=== PATIENT | male | born 1970 | race Caucasian/White ===

== ENCOUNTER 2020-11-15 16:21 | Inpatient (IN) ==
[2020-11-16] MEDS ORDERED: D5% in Water 1,000 ML IVC PRN (19:41)
[2020-11-16] MEDS ORDERED: *HR* Dextrose 50 % in Water (Vial) 50 ML VIAL IVP PRN (19:41)
[2020-11-16] MEDS ORDERED: Dextrose Gel 15 GM/37.5 ML TUBE PO PRN ×2 (19:41)
[2020-11-16] MEDS: *HR* HYDROcodone/Acet 7.5/325 mg TABLET PO PRN (23:28)
[2020-11-17] MEDS: Insulin LISPRO 300 UNITS/3 ML VIAL SUBQ SCH ×5 (02:06→20:46)
[2020-11-17] MEDS: *HR* HYDROcodone/Acet 7.5/325 mg TABLET PO PRN ×4 (05:55→20:01)
[2020-11-17] MEDS: *HR* Enoxaparin 40 MG/0.4 ML SYRINGE SQ SCH (05:57)
[2020-11-17] MEDS ORDERED: *HR* Metformin 500 MG TABLET PO SCH (08:00)
[2020-11-17] MEDS: Aspirin 81 MG TAB.CHEW PO SCH (08:38)
[2020-11-17] MEDS: Magnesium Oxide 400 MG TABLET PO SCH (08:39)
[2020-11-17] MEDS: lisinopriL 10 MG TABLET PO SCH (08:39)
[2020-11-17] MEDS ORDERED: lisinopriL 20 MG TABLET PO SCH (09:00)
[2020-11-17] MEDS ORDERED: *HR* Alteplase (Cathflo) 2 MG VIAL IVP ONE (09:25)
[2020-11-17 11:32] LABS: Basophils % 0.4 %; Eosinophils # 0.1 K/mcL (0.0-0.6); Eosinophils % 1.8 %; Hematocrit 35.4 % (37.5-50.1); Hemoglobin 11.8 g/dL (12.9-16.9); Immature Granulocytes % 0.6 % (0-4); Lymphocytes # 1.3 K/mcL (0.6-4.6); Lymphocytes % 16.5 %; Mean Corpuscular HGB Conc 33.3 g/dL (31.6-35.5); Mean Corpuscular Hemoglobin 29.9 pg (28.0-33.3); Mean Corpuscular Volume 89.8 fL (83.0-100.0); Mean Platelet Volume 8.2 fL (9.4-12.4); Monocytes # 0.8 K/mcL (0.0-1.3); Monocytes % 10.5 %; Neutrophils # 5.5 K/mcL (1.6-8.9); Platelet Count 354 K/mcL (140-400); Red Blood Count 3.94 M/mcL (4.19-5.50); Red Cell Distribution Width 13.5 % (11.5-14.5); Segmented Neutrophils % 70.2 %; White Blood Count 7.9 K/mcL (4.3-11.1)
[2020-11-17 11:47] LABS: BUN/Creatinine Ratio 19 (6-26); Blood Urea Nitrogen 14 mg/dL (6-20); Calcium 8.9 mg/dL (8.6-10.3); Carbon Dioxide 26 mEq/L (23-29); Chloride 101 mEq/L (98-107); Glucose 227 mg/dL (70-105); Osmolality,Calculated 284 (280-300); Potassium 4.3 mEq/L (3.5-5.1); Sodium 133 mEq/L (136-145); eGFR For African Americans > 60 (> 60); eGFR For Non-African Americans > 60 (> 60)
[2020-11-17] MEDS ORDERED: Vancomycin 1,000 MG in 0.9 % Sodium Chloride 10 ML IVPB SCH (18:00)
[2020-11-17] MEDS: Vancomycin 2,000 MG/520 ML IV.SOLN IVPB SCH (18:39)
[2020-11-17 19:46] LABS: Estimated Average Glucose 171 mg/dl; Hemoglobin A1C 7.6 %
[2020-11-18] MEDS: *HR* HYDROcodone/Acet 7.5/325 mg TABLET PO PRN ×4 (00:30→21:33)
[2020-11-18] MEDS: Vancomycin 2,000 MG/520 ML IV.SOLN IVPB SCH ×2 (05:13→17:43)
[2020-11-18] MEDS: *HR* Enoxaparin 40 MG/0.4 ML SYRINGE SQ SCH (05:13)
[2020-11-18] MEDS: lisinopriL 10 MG TABLET PO SCH (09:31)
[2020-11-18] MEDS: Insulin LISPRO 300 UNITS/3 ML VIAL SUBQ SCH ×4 (09:31→21:30)
[2020-11-18] MEDS: Aspirin 81 MG TAB.CHEW PO SCH (09:31)
[2020-11-18] MEDS: Magnesium Oxide 400 MG TABLET PO SCH (09:31)
[2020-11-18 16:36] LABS: BUN/Creatinine Ratio 19 (6-26); Blood Urea Nitrogen 14 mg/dL (6-20); eGFR For African Americans > 60 (> 60); eGFR For Non-African Americans > 60 (> 60)
[2020-11-19] MEDS: *HR* HYDROcodone/Acet 7.5/325 mg TABLET PO PRN ×3 (02:46→21:29)
[2020-11-19] MEDS: Vancomycin 2,000 MG/520 ML IV.SOLN IVPB SCH ×2 (05:38→17:47)
[2020-11-19] MEDS: *HR* Enoxaparin 40 MG/0.4 ML SYRINGE SQ SCH (05:38)
[2020-11-19 07:37] LABS: BUN/Creatinine Ratio 18 (6-26); Blood Urea Nitrogen 11 mg/dL (6-20); eGFR For African Americans > 60 (> 60); eGFR For Non-African Americans > 60 (> 60)
[2020-11-19] MEDS: Insulin LISPRO 300 UNITS/3 ML VIAL SUBQ SCH ×4 (08:56→21:30)
[2020-11-19] MEDS: Magnesium Oxide 400 MG TABLET PO SCH (08:57)
[2020-11-19] MEDS: Aspirin 81 MG TAB.CHEW PO SCH (08:57)
[2020-11-19] MEDS: lisinopriL 10 MG TABLET PO SCH (08:57)
[2020-11-20] MEDS: *HR* HYDROcodone/Acet 7.5/325 mg TABLET PO PRN ×3 (04:48→17:52)
[2020-11-20 04:49] LABS: Hematocrit 35.3 % (37.5-50.1); Hemoglobin 11.6 g/dL (12.9-16.9); Mean Corpuscular HGB Conc 32.9 g/dL (31.6-35.5); Mean Corpuscular Hemoglobin 29.7 pg (28.0-33.3); Mean Corpuscular Volume 90.5 fL (83.0-100.0); Mean Platelet Volume 8.6 fL (9.4-12.4); Platelet Count 293 K/mcL (140-400); Red Cell Distribution Width 13.6 % (11.5-14.5); White Blood Count 8.4 K/mcL (4.3-11.1)
[2020-11-20] MEDS: *HR* Enoxaparin 40 MG/0.4 ML SYRINGE SQ SCH (04:49)
[2020-11-20 05:07] LABS: Alanine Aminotransferase 23 Units/L (7-52); Albumin 2.9 g/dL (3.5-5.7); Albumin/Globulin Ratio 0.7 (1.1-2.2); Alkaline Phosphatase 67 Units/L (34-104); Aspartate Amino Transferase 13 Units/L (13-39); BUN/Creatinine Ratio 17 (6-26); Bilirubin,Total 0.6 mg/dL (0.3-1.0); Blood Urea Nitrogen 11 mg/dL (6-20); Calcium 8.9 mg/dL (8.6-10.3); Carbon Dioxide 25 mEq/L (23-29); Chloride 101 mEq/L (98-107); Globulin 3.9 g/dL (2.4-3.5); Glucose 178 mg/dL (70-105); Magnesium 1.9 mg/dL (1.6-2.6); Osmolality,Calculated 282 (280-300); Potassium 4.4 mEq/L (3.5-5.1); Sodium 134 mEq/L (136-145); Total Protein 6.8 g/dL (6.4-8.9); eGFR For African Americans > 60 (> 60); eGFR For Non-African Americans > 60 (> 60)
[2020-11-20] MEDS: Vancomycin 2,000 MG/520 ML IV.SOLN IVPB SCH ×2 (05:32→17:55)
[2020-11-20] MEDS: Insulin LISPRO 300 UNITS/3 ML VIAL SUBQ SCH ×4 (08:45→20:43)
[2020-11-20] MEDS: lisinopriL 20 MG TABLET PO SCH (09:02)
[2020-11-20] MEDS: Magnesium Oxide 400 MG TABLET PO SCH (09:02)
[2020-11-20] MEDS: Aspirin 81 MG TAB.CHEW PO SCH (09:02)
[2020-11-21] MEDS: *HR* HYDROcodone/Acet 7.5/325 mg TABLET PO PRN ×4 (03:21→22:07)
[2020-11-21] MEDS: *HR* Enoxaparin 40 MG/0.4 ML SYRINGE SQ SCH (05:34)
[2020-11-21] MEDS: Vancomycin 2,000 MG/520 ML IV.SOLN IVPB SCH (05:34)
[2020-11-21] MEDS: Aspirin 81 MG TAB.CHEW PO SCH (08:34)
[2020-11-21] MEDS: Insulin LISPRO 300 UNITS/3 ML VIAL SUBQ SCH ×4 (08:34→22:08)
[2020-11-21] MEDS: lisinopriL 20 MG TABLET PO SCH (08:34)
[2020-11-21] MEDS: Magnesium Oxide 400 MG TABLET PO SCH (08:34)
[2020-11-21] MEDS: Vancomycin 1,250 MG/262.5 ML IV.SOLN IVPB SCH ×2 (15:29→22:09)
[2020-11-21] MEDS ORDERED: Insulin DETEMIR 100 UNIT/ML per UNIT SUBQ ONE (21:00)
[2020-11-22 05:18] LABS: eGFR For African Americans > 60 (> 60); eGFR For Non-African Americans > 60 (> 60)
[2020-11-22] MEDS: *HR* Enoxaparin 40 MG/0.4 ML SYRINGE SQ SCH (06:17)
[2020-11-22] MEDS: Vancomycin 1,250 MG/262.5 ML IV.SOLN IVPB SCH ×3 (06:18→22:53)
[2020-11-22] MEDS: *HR* HYDROcodone/Acet 7.5/325 mg TABLET PO PRN ×3 (06:23→22:53)
[2020-11-22] MEDS: Aspirin 81 MG TAB.CHEW PO SCH (08:56)
[2020-11-22] MEDS: Insulin LISPRO 300 UNITS/3 ML VIAL SUBQ SCH ×4 (08:56→20:51)
[2020-11-22] MEDS: lisinopriL 20 MG TABLET PO SCH (08:56)
[2020-11-22] MEDS: Magnesium Oxide 400 MG TABLET PO SCH (08:56)
[2020-11-22] MEDS: Insulin DETEMIR 100 UNIT/ML X5UNITS SUBQ SCH ×2 (11:45→20:52)
[2020-11-23] MEDS: Vancomycin 1,250 MG/262.5 ML IV.SOLN IVPB SCH ×3 (06:11→22:41)
[2020-11-23] MEDS: *HR* Enoxaparin 40 MG/0.4 ML SYRINGE SQ SCH (06:11)
[2020-11-23] MEDS: *HR* HYDROcodone/Acet 7.5/325 mg TABLET PO PRN ×3 (06:12→18:50)
[2020-11-23 06:29] LABS: eGFR For African Americans > 60 (> 60); eGFR For Non-African Americans > 60 (> 60)
[2020-11-23] MEDS: lisinopriL 20 MG TABLET PO SCH (08:36)
[2020-11-23] MEDS: Magnesium Oxide 400 MG TABLET PO SCH (08:36)
[2020-11-23] MEDS: Aspirin 81 MG TAB.CHEW PO SCH (08:36)
[2020-11-23] MEDS: Insulin LISPRO 300 UNITS/3 ML VIAL SUBQ SCH ×4 (08:37→22:39)
[2020-11-23] MEDS: Insulin DETEMIR 100 UNIT/ML X5UNITS SUBQ SCH ×2 (08:45→22:40)
[2020-11-24] MEDS: *HR* HYDROcodone/Acet 7.5/325 mg TABLET PO PRN ×4 (00:41→21:42)
[2020-11-24 04:59] LABS: eGFR For African Americans > 60 (> 60); eGFR For Non-African Americans > 60 (> 60)
[2020-11-24] MEDS: *HR* Enoxaparin 40 MG/0.4 ML SYRINGE SQ SCH (05:54)
[2020-11-24] MEDS: Vancomycin 1,250 MG/262.5 ML IV.SOLN IVPB SCH ×3 (05:55→21:47)
[2020-11-24] MEDS: Insulin LISPRO 300 UNITS/3 ML VIAL SUBQ SCH ×4 (08:29→21:43)
[2020-11-24] MEDS: lisinopriL 20 MG TABLET PO SCH (09:17)
[2020-11-24] MEDS: Magnesium Oxide 400 MG TABLET PO SCH (09:17)
[2020-11-24] MEDS: Aspirin 81 MG TAB.CHEW PO SCH (09:17)
[2020-11-24] MEDS: Insulin DETEMIR 100 UNIT/ML X5UNITS SUBQ SCH ×2 (09:18→21:43)
[2020-11-24] MEDS ORDERED: Baclofen 10 MG TABLET PO PRN (10:37)
[2020-11-24] MEDS: tiZANidine 4 MG TABLET PO SCH ×3 (12:14→21:41)
[2020-11-24] MEDS: Baclofen 10 MG TABLET PO SCH (21:40)
[2020-11-25] MEDS: *HR* HYDROcodone/Acet 7.5/325 mg TABLET PO PRN ×4 (02:36→21:08)
[2020-11-25 05:49] LABS: Hematocrit 32.6 % (37.5-50.1); Hemoglobin 10.7 g/dL (12.9-16.9); Mean Corpuscular HGB Conc 32.8 g/dL (31.6-35.5); Mean Corpuscular Hemoglobin 29.2 pg (28.0-33.3); Mean Corpuscular Volume 89.1 fL (83.0-100.0); Mean Platelet Volume 8.9 fL (9.4-12.4); Platelet Count 207 K/mcL (140-400); Red Blood Count 3.66 M/mcL (4.19-5.50); Red Cell Distribution Width 13.2 % (11.5-14.5); White Blood Count 6.1 K/mcL (4.3-11.1)
[2020-11-25 06:07] LABS: BUN/Creatinine Ratio 20 (6-26); Blood Urea Nitrogen 13 mg/dL (6-20); Calcium 8.8 mg/dL (8.6-10.3); Carbon Dioxide 27 mEq/L (23-29); Chloride 97 mEq/L (98-107); Glucose 214 mg/dL (70-105); Osmolality,Calculated 277 (280-300); Potassium 4.1 mEq/L (3.5-5.1); Sodium 130 mEq/L (136-145); eGFR For African Americans > 60 (> 60); eGFR For Non-African Americans > 60 (> 60)
[2020-11-25] MEDS: *HR* Enoxaparin 40 MG/0.4 ML SYRINGE SQ SCH (06:15)
[2020-11-25] MEDS: Vancomycin 1,250 MG/262.5 ML IV.SOLN IVPB SCH (06:17)
[2020-11-25] MEDS: Aspirin 81 MG TAB.CHEW PO SCH (08:38)
[2020-11-25] MEDS: lisinopriL 20 MG TABLET PO SCH (08:39)
[2020-11-25] MEDS: Magnesium Oxide 400 MG TABLET PO SCH (08:39)
[2020-11-25] MEDS: Baclofen 10 MG TABLET PO SCH ×3 (08:39→21:06)
[2020-11-25] MEDS: tiZANidine 4 MG TABLET PO SCH ×3 (08:39→21:08)
[2020-11-25] MEDS: Insulin LISPRO 300 UNITS/3 ML VIAL SUBQ SCH ×4 (08:40→21:09)
[2020-11-25] MEDS: Insulin DETEMIR 100 UNIT/ML X5UNITS SUBQ SCH ×2 (08:40→21:08)
[2020-11-25 14:27] LABS: C-Reactive Protein 28 mg/L (Less than 10)
[2020-11-25] MEDS: Vancomycin 1,500 MG/265 ML IV.SOLN IVPB SCH ×2 (14:31→21:10)
[2020-11-26] MEDS: *HR* HYDROcodone/Acet 7.5/325 mg TABLET PO PRN ×3 (02:55→13:13)
[2020-11-26] MEDS: Vancomycin 1,500 MG/265 ML IV.SOLN IVPB SCH (05:49)
[2020-11-26] MEDS: *HR* Enoxaparin 40 MG/0.4 ML SYRINGE SQ SCH (05:49)
[2020-11-26 06:12] LABS: Basophils % 0.4 %; Eosinophils # 0.4 K/mcL (0.0-0.6); Eosinophils % 5.5 %; Hematocrit 34.3 % (37.5-50.1); Hemoglobin 11.5 g/dL (12.9-16.9); Immature Granulocytes % 0.7 % (0-4); Lymphocytes # 1.5 K/mcL (0.6-4.6); Lymphocytes % 20.2 %; Mean Corpuscular HGB Conc 33.5 g/dL (31.6-35.5); Mean Corpuscular Hemoglobin 29.7 pg (28.0-33.3); Mean Corpuscular Volume 88.6 fL (83.0-100.0); Monocytes # 0.9 K/mcL (0.0-1.3); Monocytes % 12.5 %; Neutrophils # 4.4 K/mcL (1.6-8.9); Platelet Count 245 K/mcL (140-400); Red Blood Count 3.87 M/mcL (4.19-5.50); Red Cell Distribution Width 13.4 % (11.5-14.5); Segmented Neutrophils % 60.7 %; White Blood Count 7.3 K/mcL (4.3-11.1)
[2020-11-26 06:30] LABS: BUN/Creatinine Ratio 18 (6-26); Blood Urea Nitrogen 11 mg/dL (6-20); Calcium 8.9 mg/dL (8.6-10.3); Carbon Dioxide 27 mEq/L (23-29); Chloride 99 mEq/L (98-107); Glucose 209 mg/dL (70-105); Osmolality,Calculated 282 (280-300); Potassium 4.2 mEq/L (3.5-5.1); Sodium 133 mEq/L (136-145); eGFR For African Americans > 60 (> 60); eGFR For Non-African Americans > 60 (> 60)
[2020-11-26] MEDS: Aspirin 81 MG TAB.CHEW PO SCH (08:05)
[2020-11-26] MEDS: lisinopriL 20 MG TABLET PO SCH (08:05)
[2020-11-26] MEDS: Magnesium Oxide 400 MG TABLET PO SCH (08:06)
[2020-11-26] MEDS: tiZANidine 4 MG TABLET PO SCH (08:06)
[2020-11-26] MEDS: Baclofen 10 MG TABLET PO SCH (08:06)
[2020-11-26] MEDS: Insulin LISPRO 300 UNITS/3 ML VIAL SUBQ SCH ×2 (08:07→13:04)
[2020-11-26 08:22] VITALS: BP 151/83
[2020-11-26] MEDS: Insulin DETEMIR 100 UNIT/ML X5UNITS SUBQ SCH (09:56)
== END 2020-11-26 13:40 | disposition short-term general hospital (02) | DRG 560 ==
LOC: INPGRE 11-16 21:09
PROVIDERS: ADMIT Family Medicine; ATTEND Family Medicine

== ENCOUNTER 2020-11-28 12:35 | Inpatient (IN) ==
[2020-11-30] MEDS ORDERED: *HR* Dextrose 50 % in Water (Vial) 50 ML VIAL IVP PRN (14:41)
[2020-11-30] MEDS ORDERED: D5% in Water 1,000 ML IVC PRN (14:41)
[2020-11-30] MEDS ORDERED: Dextrose Gel 15 GM/37.5 ML TUBE PO PRN ×2 (14:41)
[2020-11-30] MEDS: Insulin LISPRO 300 UNITS/3 ML VIAL SUBQ SCH ×2 (17:38→21:44)
[2020-11-30] MEDS ORDERED: polyethylene glycoL 3350 17 GM POWD.PACK PO PRN (19:23)
[2020-11-30] MEDS ORDERED: Sennosides 8.6 MG TABLET PO PRN (19:23)
[2020-11-30] MEDS: Ibuprofen 600 MG TABLET PO PRN (19:32)
[2020-11-30] MEDS ORDERED: [UNRECOGNIZED DRUG - OTHER] IV SCH (21:00)
[2020-11-30] MEDS ORDERED: Insulin DETEMIR 100 UNIT/ML per UNIT SUBQ ONE (21:00)
[2020-11-30] MEDS ORDERED: VANCOMYCIN IV SCH (21:00)
[2020-11-30] MEDS ORDERED: SOD CHLORIDE IV SCH (21:00)
[2020-11-30] MEDS ORDERED: Sennosides 8.6 MG TABLET PO SCH (21:00)
[2020-11-30] MEDS ORDERED: Insulin DETEMIR 100 UNIT/ML X5UNITS SUBQ SCH (21:00)
[2020-11-30] MEDS: *HR* OxyCODONE Immed Rel 5 MG TABLET PO PRN (21:45)
[2020-11-30] MEDS: Doxycycline 100 MG CAPSULE PO SCH (21:45)
[2020-11-30] MEDS: Baclofen 10 MG TABLET PO SCH (21:46)
[2020-12-01 03:51] LABS: Basophils % 0.6 %; Eosinophils # 0.4 K/mcL (0.0-0.6); Eosinophils % 5.3 %; Hematocrit 35.3 % (37.5-50.1); Hemoglobin 11.7 g/dL (12.9-16.9); Immature Granulocytes % 1.2 % (0-4); Lymphocytes # 1.6 K/mcL (0.6-4.6); Lymphocytes % 23.4 %; Mean Corpuscular HGB Conc 33.1 g/dL (31.6-35.5); Mean Corpuscular Hemoglobin 29.5 pg (28.0-33.3); Mean Corpuscular Volume 88.9 fL (83.0-100.0); Mean Platelet Volume 8.6 fL (9.4-12.4); Monocytes % 15.1 %; Neutrophils # 3.6 K/mcL (1.6-8.9); Platelet Count 243 K/mcL (140-400); Red Blood Count 3.97 M/mcL (4.19-5.50); Red Cell Distribution Width 13.6 % (11.5-14.5); Segmented Neutrophils % 54.4 %; White Blood Count 6.6 K/mcL (4.3-11.1)
[2020-12-01 04:07] LABS: BUN/Creatinine Ratio 19 (6-26); Blood Urea Nitrogen 12 mg/dL (6-20); Calcium 8.9 mg/dL (8.6-10.3); Carbon Dioxide 24 mEq/L (23-29); Chloride 105 mEq/L (98-107); Glucose 169 mg/dL (70-105); Osmolality,Calculated 288 (280-300); Potassium 3.6 mEq/L (3.5-5.1); Sodium 137 mEq/L (136-145); eGFR For African Americans > 60 (> 60); eGFR For Non-African Americans > 60 (> 60)
[2020-12-01] MEDS: *HR* Enoxaparin 40 MG/0.4 ML SYRINGE SQ SCH (06:04)
[2020-12-01] MEDS: *HR* OxyCODONE Immed Rel 5 MG TABLET PO PRN (08:48)
[2020-12-01] MEDS: Aspirin Enteric Coated 81 MG Tablet PO SCH (08:48)
[2020-12-01] MEDS: *HR* Metformin 500 MG TABLET PO SCH (08:48)
[2020-12-01] MEDS: lisinopriL 20 MG TABLET PO SCH (08:48)
[2020-12-01] MEDS: Doxycycline 100 MG CAPSULE PO SCH (08:49)
[2020-12-01] MEDS: Magnesium Oxide 400 MG TABLET PO SCH (08:49)
[2020-12-01] MEDS: Insulin LISPRO 300 UNITS/3 ML VIAL SUBQ SCH ×4 (08:49→21:00)
[2020-12-01] MEDS: Insulin DETEMIR 100 UNIT/ML X5UNITS SUBQ SCH ×2 (08:49→21:00)
[2020-12-01] MEDS: Baclofen 10 MG TABLET PO SCH ×3 (08:49→21:03)
[2020-12-01] MEDS ORDERED: polyethylene glycoL 3350 17 GM POWD.PACK PO SCH (09:00)
[2020-12-01] MEDS: Vancomycin 1,500 MG/265 ML IV.SOLN IVPB SCH ×2 (11:49→21:04)
[2020-12-01] MEDS: Fluticasone Propionate Nasal 50 MCG/SPRAY BOTTLE NS SCH (17:09)
[2020-12-01] MEDS: Ibuprofen 600 MG TABLET PO PRN (21:05)
[2020-12-02] MEDS: Vancomycin 1,500 MG/265 ML IV.SOLN IVPB SCH ×3 (04:58→20:31)
[2020-12-02] MEDS: *HR* Enoxaparin 40 MG/0.4 ML SYRINGE SQ SCH (04:59)
[2020-12-02] MEDS: Aspirin Enteric Coated 81 MG Tablet PO SCH (09:12)
[2020-12-02] MEDS: Insulin DETEMIR 100 UNIT/ML X5UNITS SUBQ SCH ×2 (09:12→20:32)
[2020-12-02] MEDS: *HR* Metformin 500 MG TABLET PO SCH (09:12)
[2020-12-02] MEDS: Insulin LISPRO 300 UNITS/3 ML VIAL SUBQ SCH ×4 (09:12→20:33)
[2020-12-02] MEDS: Baclofen 10 MG TABLET PO SCH ×3 (09:12→20:32)
[2020-12-02] MEDS: Magnesium Oxide 400 MG TABLET PO SCH (09:12)
[2020-12-02] MEDS: lisinopriL 20 MG TABLET PO SCH (09:13)
[2020-12-02] MEDS: Fluticasone Propionate Nasal 50 MCG/SPRAY BOTTLE NS SCH ×2 (09:14→11:39)
[2020-12-02] MEDS ORDERED: Ondansetron 4 MG/2 ML VIAL IVP PRN (15:06)
[2020-12-02] MEDS: *HR* OxyCODONE Immed Rel 5 MG TABLET PO PRN (20:32)
[2020-12-03] MEDS: Ibuprofen 600 MG TABLET PO PRN (00:25)
[2020-12-03] MEDS: Vancomycin 1,500 MG/265 ML IV.SOLN IVPB SCH ×3 (03:56→20:43)
[2020-12-03] MEDS: Aspirin Enteric Coated 81 MG Tablet PO SCH (08:15)
[2020-12-03] MEDS: *HR* Enoxaparin 40 MG/0.4 ML SYRINGE SQ SCH (08:15)
[2020-12-03] MEDS: *HR* Metformin 500 MG TABLET PO SCH (08:15)
[2020-12-03] MEDS: Insulin LISPRO 300 UNITS/3 ML VIAL SUBQ SCH ×4 (08:15→20:44)
[2020-12-03] MEDS: Baclofen 10 MG TABLET PO SCH ×3 (08:15→20:42)
[2020-12-03] MEDS: Magnesium Oxide 400 MG TABLET PO SCH (08:15)
[2020-12-03] MEDS: Fluticasone Propionate Nasal 50 MCG/SPRAY BOTTLE NS SCH (08:15)
[2020-12-03] MEDS: lisinopriL 20 MG TABLET PO SCH (08:15)
[2020-12-03] MEDS: Insulin DETEMIR 100 UNIT/ML X5UNITS SUBQ SCH ×2 (08:16→20:44)
[2020-12-03 12:02] LABS: BUN/Creatinine Ratio 15 (6-26); Blood Urea Nitrogen 12 mg/dL (6-20); eGFR For African Americans > 60 (> 60); eGFR For Non-African Americans > 60 (> 60)
[2020-12-03] MEDS: Nystatin Cream 15 GM TUBE TP SCH (20:42)
[2020-12-03] MEDS ORDERED: *HR* Labetalol 20 MG/4 ML SYRINGE IVP ONE (22:19)
[2020-12-04] MEDS: *HR* OxyCODONE Immed Rel 5 MG TABLET PO PRN ×2 (00:30→12:23)
[2020-12-04 05:07] LABS: Basophils % 0.4 %; Eosinophils # 0.2 K/mcL (0.0-0.6); Eosinophils % 2.9 %; Hematocrit 33.4 % (37.5-50.1); Hemoglobin 11.2 g/dL (12.9-16.9); Immature Granulocytes % 0.9 % (0-4); Lymphocytes # 1.7 K/mcL (0.6-4.6); Lymphocytes % 22.9 %; Mean Corpuscular HGB Conc 33.5 g/dL (31.6-35.5); Mean Corpuscular Hemoglobin 29.4 pg (28.0-33.3); Mean Corpuscular Volume 87.7 fL (83.0-100.0); Mean Platelet Volume 8.8 fL (9.4-12.4); Monocytes # 1.1 K/mcL (0.0-1.3); Monocytes % 14.2 %; Neutrophils # 4.4 K/mcL (1.6-8.9); Platelet Count 255 K/mcL (140-400); Red Blood Count 3.81 M/mcL (4.19-5.50); Red Cell Distribution Width 13.3 % (11.5-14.5); Segmented Neutrophils % 58.7 %; White Blood Count 7.6 K/mcL (4.3-11.1)
[2020-12-04 05:20] LABS: BUN/Creatinine Ratio 17 (6-26); Blood Urea Nitrogen 12 mg/dL (6-20); Calcium 9.1 mg/dL (8.6-10.3); Carbon Dioxide 26 mEq/L (23-29); Chloride 100 mEq/L (98-107); Glucose 160 mg/dL (70-105); Osmolality,Calculated 281 (280-300); Potassium 3.8 mEq/L (3.5-5.1); Sodium 134 mEq/L (136-145); eGFR For African Americans > 60 (> 60); eGFR For Non-African Americans > 60 (> 60)
[2020-12-04] MEDS: *HR* Enoxaparin 40 MG/0.4 ML SYRINGE SQ SCH (05:25)
[2020-12-04] MEDS: Vancomycin 1,500 MG/265 ML IV.SOLN IVPB SCH ×3 (05:30→21:14)
[2020-12-04] MEDS: *HR* Metformin 500 MG TABLET PO SCH (08:51)
[2020-12-04] MEDS: Aspirin Enteric Coated 81 MG Tablet PO SCH (08:51)
[2020-12-04] MEDS: lisinopriL 20 MG TABLET PO SCH (08:51)
[2020-12-04] MEDS: Magnesium Oxide 400 MG TABLET PO SCH (08:51)
[2020-12-04] MEDS: Baclofen 10 MG TABLET PO SCH ×3 (08:51→21:13)
[2020-12-04] MEDS: Insulin LISPRO 300 UNITS/3 ML VIAL SUBQ SCH ×4 (08:52→21:11)
[2020-12-04] MEDS: Insulin DETEMIR 100 UNIT/ML X5UNITS SUBQ SCH ×2 (08:52→21:11)
[2020-12-04] MEDS: Fluticasone Propionate Nasal 50 MCG/SPRAY BOTTLE NS SCH (08:52)
[2020-12-04] MEDS: Nystatin Cream 15 GM TUBE TP SCH ×2 (08:52→21:13)
[2020-12-05] MEDS: Ibuprofen 600 MG TABLET PO PRN ×2 (00:32→12:40)
[2020-12-05] MEDS: *HR* Enoxaparin 40 MG/0.4 ML SYRINGE SQ SCH (04:15)
[2020-12-05] MEDS: Vancomycin 1,500 MG/265 ML IV.SOLN IVPB SCH (04:15)
[2020-12-05 05:27] LABS: eGFR For African Americans > 60 (> 60); eGFR For Non-African Americans > 60 (> 60)
[2020-12-05] MEDS: Magnesium Oxide 400 MG TABLET PO SCH (09:35)
[2020-12-05] MEDS: *HR* Metformin 500 MG TABLET PO SCH (09:35)
[2020-12-05] MEDS: Insulin DETEMIR 100 UNIT/ML X5UNITS SUBQ SCH ×2 (09:36→20:27)
[2020-12-05] MEDS: lisinopriL 20 MG TABLET PO SCH (09:36)
[2020-12-05] MEDS: Insulin LISPRO 300 UNITS/3 ML VIAL SUBQ SCH ×4 (09:36→20:26)
[2020-12-05] MEDS: Aspirin Enteric Coated 81 MG Tablet PO SCH (09:36)
[2020-12-05] MEDS: Baclofen 10 MG TABLET PO SCH ×3 (09:36→20:27)
[2020-12-05] MEDS: Fluticasone Propionate Nasal 50 MCG/SPRAY BOTTLE NS SCH (09:39)
[2020-12-05] MEDS: *HR* OxyCODONE Immed Rel 5 MG TABLET PO PRN (09:39)
[2020-12-05] MEDS: Nystatin Cream 15 GM TUBE TP SCH ×2 (09:45→20:26)
[2020-12-05] MEDS: Vancomycin 1,250 MG/262.5 ML IV.SOLN IVPB SCH ×2 (17:30→20:25)
[2020-12-06] MEDS: Vancomycin 1,250 MG/262.5 ML IV.SOLN IVPB SCH ×3 (03:37→20:28)
[2020-12-06] MEDS: *HR* OxyCODONE Immed Rel 5 MG TABLET PO PRN ×3 (03:38→12:58)
[2020-12-06 04:45] LABS: eGFR For African Americans > 60 (> 60); eGFR For Non-African Americans > 60 (> 60)
[2020-12-06] MEDS: *HR* Enoxaparin 40 MG/0.4 ML SYRINGE SQ SCH (05:42)
[2020-12-06] MEDS: Magnesium Oxide 400 MG TABLET PO SCH (08:45)
[2020-12-06] MEDS: *HR* Metformin 500 MG TABLET PO SCH (08:45)
[2020-12-06] MEDS: lisinopriL 20 MG TABLET PO SCH (08:45)
[2020-12-06] MEDS: Aspirin Enteric Coated 81 MG Tablet PO SCH (08:45)
[2020-12-06] MEDS: Baclofen 10 MG TABLET PO SCH (08:45)
[2020-12-06] MEDS: Insulin DETEMIR 100 UNIT/ML X5UNITS SUBQ SCH ×2 (08:46→20:29)
[2020-12-06] MEDS: Fluticasone Propionate Nasal 50 MCG/SPRAY BOTTLE NS SCH (08:46)
[2020-12-06] MEDS: Insulin LISPRO 300 UNITS/3 ML VIAL SUBQ SCH ×4 (08:47→20:28)
[2020-12-06] MEDS ORDERED: lisinopriL 10 MG TABLET PO ONE (09:50)
[2020-12-06] MEDS: Nystatin Cream 15 GM TUBE TP SCH ×2 (11:50→20:30)
[2020-12-06] MEDS: tiZANidine 4 MG TABLET PO SCH ×2 (15:54→20:30)
[2020-12-06] MEDS: Bisacodyl 10 MG RECTAL SUPPOSITORY RC SCH (18:36)
[2020-12-06] MEDS: Baclofen 10 MG TABLET PO PRN (20:31)
[2020-12-07] MEDS: Ibuprofen 600 MG TABLET PO PRN ×2 (02:57→14:33)
[2020-12-07] MEDS: Vancomycin 1,250 MG/262.5 ML IV.SOLN IVPB SCH ×2 (03:30→12:09)
[2020-12-07] MEDS: *HR* Enoxaparin 40 MG/0.4 ML SYRINGE SQ SCH (05:17)
[2020-12-07 05:59] LABS: eGFR For African Americans > 60 (> 60); eGFR For Non-African Americans > 60 (> 60)
[2020-12-07] MEDS: Insulin LISPRO 300 UNITS/3 ML VIAL SUBQ SCH ×4 (08:01→21:58)
[2020-12-07] MEDS: tiZANidine 4 MG TABLET PO SCH ×3 (08:03→21:45)
[2020-12-07] MEDS: Magnesium Oxide 400 MG TABLET PO SCH (08:03)
[2020-12-07] MEDS: *HR* Metformin 500 MG TABLET PO SCH (08:03)
[2020-12-07] MEDS: Nystatin Cream 15 GM TUBE TP SCH ×2 (08:04→21:46)
[2020-12-07] MEDS: Fluticasone Propionate Nasal 50 MCG/SPRAY BOTTLE NS SCH (08:04)
[2020-12-07] MEDS: lisinopriL 20 MG TABLET PO SCH (08:04)
[2020-12-07] MEDS: Aspirin Enteric Coated 81 MG Tablet PO SCH (08:04)
[2020-12-07] MEDS: *HR* OxyCODONE Immed Rel 5 MG TABLET PO PRN ×2 (08:10→12:08)
[2020-12-07] MEDS: Insulin DETEMIR 100 UNIT/ML X5UNITS SUBQ SCH ×2 (08:11→21:58)
[2020-12-07] MEDS ORDERED: lisinopriL 10 MG TABLET PO ONE (09:50)
[2020-12-07] MEDS ORDERED: Carbamide Peroxide 150 DROP/15 ML BOTTLE LEFT EAR ONE (15:28)
[2020-12-07] MEDS: Loratadine 10 MG TABLET PO SCH (17:43)
[2020-12-07] MEDS: Amoxicillin 500 MG CAPSULE PO SCH (17:43)
[2020-12-07] MEDS: Bisacodyl 10 MG RECTAL SUPPOSITORY RC SCH (18:01)
[2020-12-07] MEDS: Vancomycin 1,500 MG/265 ML IV.SOLN IVPB SCH (21:44)
[2020-12-07] MEDS: Baclofen 10 MG TABLET PO PRN (21:45)
[2020-12-08] MEDS: Amoxicillin 500 MG CAPSULE PO SCH ×3 (00:10→17:34)
[2020-12-08] MEDS: *HR* OxyCODONE Immed Rel 5 MG TABLET PO PRN ×3 (02:20→13:24)
[2020-12-08] MEDS: Vancomycin 1,500 MG/265 ML IV.SOLN IVPB SCH ×3 (04:00→20:40)
[2020-12-08] MEDS: Baclofen 10 MG TABLET PO PRN (06:01)
[2020-12-08] MEDS: *HR* Enoxaparin 40 MG/0.4 ML SYRINGE SQ SCH (06:01)
[2020-12-08] MEDS: Insulin DETEMIR 100 UNIT/ML X5UNITS SUBQ SCH ×2 (09:11→20:59)
[2020-12-08] MEDS: Magnesium Oxide 400 MG TABLET PO SCH (09:11)
[2020-12-08] MEDS: Loratadine 10 MG TABLET PO SCH (09:11)
[2020-12-08] MEDS: lisinopriL 20 MG TABLET PO SCH (09:12)
[2020-12-08] MEDS: Aspirin Enteric Coated 81 MG Tablet PO SCH (09:12)
[2020-12-08] MEDS: tiZANidine 4 MG TABLET PO SCH ×3 (09:12→20:45)
[2020-12-08] MEDS: *HR* Metformin 500 MG TABLET PO SCH (09:12)
[2020-12-08] MEDS: Nystatin Cream 15 GM TUBE TP SCH ×2 (09:13→20:50)
[2020-12-08] MEDS: Fluticasone Propionate Nasal 50 MCG/SPRAY BOTTLE NS SCH (09:13)
[2020-12-08] MEDS: Insulin LISPRO 300 UNITS/3 ML VIAL SUBQ SCH ×4 (09:13→20:57)
[2020-12-08] MEDS: Bisacodyl 10 MG RECTAL SUPPOSITORY RC SCH (17:35)
[2020-12-08] MEDS: Carbamide Peroxide 150 DROP/15 ML BOTTLE LEFT EAR SCH (20:50)
[2020-12-08] MEDS: Ibuprofen 600 MG TABLET PO PRN (22:38)
[2020-12-09] MEDS: Amoxicillin 500 MG CAPSULE PO SCH ×4 (00:18→23:48)
[2020-12-09] MEDS: Vancomycin 1,500 MG/265 ML IV.SOLN IVPB SCH ×3 (04:10→19:59)
[2020-12-09] MEDS: *HR* Enoxaparin 40 MG/0.4 ML SYRINGE SQ SCH (06:52)
[2020-12-09 07:28] LABS: eGFR For African Americans > 60 (> 60); eGFR For Non-African Americans > 60 (> 60)
[2020-12-09] MEDS: Aspirin Enteric Coated 81 MG Tablet PO SCH (09:08)
[2020-12-09] MEDS: Loratadine 10 MG TABLET PO SCH (09:09)
[2020-12-09] MEDS: *HR* Metformin 500 MG TABLET PO SCH (09:09)
[2020-12-09] MEDS: Magnesium Oxide 400 MG TABLET PO SCH (09:09)
[2020-12-09] MEDS: tiZANidine 4 MG TABLET PO SCH ×3 (09:09→19:58)
[2020-12-09] MEDS: lisinopriL 20 MG TABLET PO SCH (09:09)
[2020-12-09] MEDS: Insulin DETEMIR 100 UNIT/ML X5UNITS SUBQ SCH ×2 (09:10→19:58)
[2020-12-09] MEDS: Insulin LISPRO 300 UNITS/3 ML VIAL SUBQ SCH ×4 (09:10→19:59)
[2020-12-09] MEDS: Nystatin Cream 15 GM TUBE TP SCH ×2 (09:11→20:00)
[2020-12-09] MEDS: Fluticasone Propionate Nasal 50 MCG/SPRAY BOTTLE NS SCH (09:14)
[2020-12-09] MEDS: Carbamide Peroxide 150 DROP/15 ML BOTTLE LEFT EAR SCH ×2 (09:15→20:00)
[2020-12-09] MEDS: *HR* OxyCODONE Immed Rel 5 MG TABLET PO PRN ×2 (12:29→23:02)
[2020-12-09] MEDS: Bisacodyl 10 MG RECTAL SUPPOSITORY RC SCH (17:58)
[2020-12-09] MEDS: Baclofen 10 MG TABLET PO PRN (23:02)
[2020-12-10] MEDS: Vancomycin 1,500 MG/265 ML IV.SOLN IVPB SCH ×3 (04:23→20:14)
[2020-12-10 05:20] LABS: Hematocrit 35.9 % (37.5-50.1); Mean Corpuscular HGB Conc 33.4 g/dL (31.6-35.5); Mean Corpuscular Hemoglobin 29.4 pg (28.0-33.3); Mean Platelet Volume 9.2 fL (9.4-12.4); Platelet Count 239 K/mcL (140-400); Red Blood Count 4.08 M/mcL (4.19-5.50); Red Cell Distribution Width 13.4 % (11.5-14.5); White Blood Count 6.7 K/mcL (4.3-11.1)
[2020-12-10 05:32] LABS: Alanine Aminotransferase 36 Units/L (7-52); Albumin 3.5 g/dL (3.5-5.7); Albumin/Globulin Ratio 1.1 (1.1-2.2); Alkaline Phosphatase 91 Units/L (34-104); Aspartate Amino Transferase 17 Units/L (13-39); BUN/Creatinine Ratio 18 (6-26); Bilirubin,Total 0.4 mg/dL (0.3-1.0); Blood Urea Nitrogen 12 mg/dL (6-20); Calcium 9.3 mg/dL (8.6-10.3); Carbon Dioxide 27 mEq/L (23-29); Chloride 101 mEq/L (98-107); Globulin 3.2 g/dL (2.4-3.5); Glucose 218 mg/dL (70-105); Magnesium 1.9 mg/dL (1.6-2.6); Osmolality,Calculated 286 (280-300); Sodium 135 mEq/L (136-145); Total Protein 6.7 g/dL (6.4-8.9); eGFR For African Americans > 60 (> 60); eGFR For Non-African Americans > 60 (> 60)
[2020-12-10] MEDS: *HR* Enoxaparin 40 MG/0.4 ML SYRINGE SQ SCH (05:59)
[2020-12-10] MEDS: Loratadine 10 MG TABLET PO SCH (09:32)
[2020-12-10] MEDS: Magnesium Oxide 400 MG TABLET PO SCH (09:33)
[2020-12-10] MEDS: Amoxicillin 500 MG CAPSULE PO SCH ×2 (09:33→15:53)
[2020-12-10] MEDS: *HR* Metformin 500 MG TABLET PO SCH (09:33)
[2020-12-10] MEDS: Aspirin Enteric Coated 81 MG Tablet PO SCH (09:33)
[2020-12-10] MEDS: tiZANidine 4 MG TABLET PO SCH ×3 (09:33→20:15)
[2020-12-10] MEDS: lisinopriL 20 MG TABLET PO SCH (09:33)
[2020-12-10] MEDS: Nystatin Cream 15 GM TUBE TP SCH ×2 (09:34→20:16)
[2020-12-10] MEDS: Insulin DETEMIR 100 UNIT/ML X5UNITS SUBQ SCH ×2 (09:34→20:29)
[2020-12-10] MEDS: Insulin LISPRO 300 UNITS/3 ML VIAL SUBQ SCH ×4 (09:34→20:25)
[2020-12-10] MEDS: Carbamide Peroxide 150 DROP/15 ML BOTTLE LEFT EAR SCH ×2 (09:41→20:16)
[2020-12-10] MEDS: Fluticasone Propionate Nasal 50 MCG/SPRAY BOTTLE NS SCH (09:41)
[2020-12-10] MEDS: *HR* OxyCODONE Immed Rel 5 MG TABLET PO PRN ×2 (12:32→18:40)
[2020-12-10] MEDS: Ibuprofen 600 MG TABLET PO PRN (15:55)
[2020-12-10] MEDS: Bisacodyl 10 MG RECTAL SUPPOSITORY RC SCH (20:06)
[2020-12-11] MEDS: Vancomycin 1,500 MG/265 ML IV.SOLN IVPB SCH ×3 (03:11→21:34)
[2020-12-11] MEDS: Ibuprofen 600 MG TABLET PO PRN (04:37)
[2020-12-11] MEDS: *HR* Enoxaparin 40 MG/0.4 ML SYRINGE SQ SCH (04:37)
[2020-12-11] MEDS: Aspirin Enteric Coated 81 MG Tablet PO SCH (08:29)
[2020-12-11] MEDS: Magnesium Oxide 400 MG TABLET PO SCH (08:29)
[2020-12-11] MEDS: tiZANidine 4 MG TABLET PO SCH ×3 (08:29→21:19)
[2020-12-11] MEDS: lisinopriL 20 MG TABLET PO SCH (08:29)
[2020-12-11] MEDS: Amoxicillin 500 MG CAPSULE PO SCH ×4 (08:29→21:18)
[2020-12-11] MEDS: Loratadine 10 MG TABLET PO SCH (08:29)
[2020-12-11] MEDS: *HR* Metformin 500 MG TABLET PO SCH (08:29)
[2020-12-11] MEDS: Carbamide Peroxide 150 DROP/15 ML BOTTLE LEFT EAR SCH ×2 (08:30→21:35)
[2020-12-11] MEDS: Fluticasone Propionate Nasal 50 MCG/SPRAY BOTTLE NS SCH (08:30)
[2020-12-11] MEDS: Nystatin Cream 15 GM TUBE TP SCH ×2 (08:31→21:21)
[2020-12-11] MEDS: Insulin DETEMIR 100 UNIT/ML X5UNITS SUBQ SCH ×2 (08:31→21:18)
[2020-12-11] MEDS: Insulin LISPRO 300 UNITS/3 ML VIAL SUBQ SCH ×4 (08:32→21:17)
[2020-12-11] MEDS: *HR* OxyCODONE Immed Rel 5 MG TABLET PO PRN ×2 (09:37→16:05)
[2020-12-11] MEDS: Bisacodyl 10 MG RECTAL SUPPOSITORY RC SCH (17:18)
[2020-12-11] MEDS: Baclofen 10 MG TABLET PO PRN (21:19)
[2020-12-12] MEDS: *HR* OxyCODONE Immed Rel 5 MG TABLET PO PRN ×4 (01:52→17:09)
[2020-12-12] MEDS: Vancomycin 1,500 MG/265 ML IV.SOLN IVPB SCH ×3 (03:32→19:31)
[2020-12-12 05:12] LABS: eGFR For African Americans > 60 (> 60); eGFR For Non-African Americans > 60 (> 60)
[2020-12-12] MEDS: *HR* Enoxaparin 40 MG/0.4 ML SYRINGE SQ SCH (05:29)
[2020-12-12] MEDS: Insulin DETEMIR 100 UNIT/ML X5UNITS SUBQ SCH ×2 (08:23→21:01)
[2020-12-12] MEDS: Insulin LISPRO 300 UNITS/3 ML VIAL SUBQ SCH ×4 (08:23→21:00)
[2020-12-12] MEDS: Amoxicillin 500 MG CAPSULE PO SCH ×3 (08:24→21:02)
[2020-12-12] MEDS: tiZANidine 4 MG TABLET PO SCH ×3 (08:24→21:02)
[2020-12-12] MEDS: *HR* Metformin 500 MG TABLET PO SCH (08:24)
[2020-12-12] MEDS: lisinopriL 20 MG TABLET PO SCH (08:24)
[2020-12-12] MEDS: Loratadine 10 MG TABLET PO SCH (08:24)
[2020-12-12] MEDS: Aspirin Enteric Coated 81 MG Tablet PO SCH (08:24)
[2020-12-12] MEDS: Magnesium Oxide 400 MG TABLET PO SCH (08:25)
[2020-12-12] MEDS: Fluticasone Propionate Nasal 50 MCG/SPRAY BOTTLE NS SCH (08:25)
[2020-12-12] MEDS: Carbamide Peroxide 150 DROP/15 ML BOTTLE LEFT EAR SCH ×2 (10:28→21:01)
[2020-12-12] MEDS: Nystatin Cream 15 GM TUBE TP SCH ×2 (10:28→21:03)
[2020-12-12] MEDS: Baclofen 10 MG TABLET PO PRN (17:09)
[2020-12-12] MEDS: Bisacodyl 10 MG RECTAL SUPPOSITORY RC SCH (17:57)
[2020-12-13] MEDS: Vancomycin 1,500 MG/265 ML IV.SOLN IVPB SCH (02:58)
[2020-12-13] MEDS: Ibuprofen 600 MG TABLET PO PRN ×2 (02:58→21:26)
[2020-12-13] MEDS: *HR* Enoxaparin 40 MG/0.4 ML SYRINGE SQ SCH (05:16)
[2020-12-13] MEDS: Magnesium Oxide 400 MG TABLET PO SCH (05:17)
[2020-12-13] MEDS: lisinopriL 20 MG TABLET PO SCH (05:17)
[2020-12-13] MEDS: *HR* Metformin 500 MG TABLET PO SCH (05:17)
[2020-12-13] MEDS: Baclofen 10 MG TABLET PO PRN (05:17)
[2020-12-13] MEDS: Aspirin Enteric Coated 81 MG Tablet PO SCH (05:17)
[2020-12-13] MEDS: Amoxicillin 500 MG CAPSULE PO SCH ×3 (05:18→23:32)
[2020-12-13] MEDS: Loratadine 10 MG TABLET PO SCH (05:18)
[2020-12-13] MEDS: tiZANidine 4 MG TABLET PO SCH ×3 (05:18→21:27)
[2020-12-13] MEDS: Carbamide Peroxide 150 DROP/15 ML BOTTLE LEFT EAR SCH ×2 (05:24→21:29)
[2020-12-13] MEDS: Nystatin Cream 15 GM TUBE TP SCH ×2 (05:24→23:33)
[2020-12-13] MEDS: Insulin DETEMIR 100 UNIT/ML X5UNITS SUBQ SCH ×2 (06:06→21:29)
[2020-12-13] MEDS: *HR* OxyCODONE Immed Rel 5 MG TABLET PO PRN ×2 (06:06→12:08)
[2020-12-13] MEDS: Fluticasone Propionate Nasal 50 MCG/SPRAY BOTTLE NS SCH (06:06)
[2020-12-13] MEDS: Insulin LISPRO 300 UNITS/3 ML VIAL SUBQ SCH ×4 (06:06→21:30)
[2020-12-13] MEDS: Bisacodyl 10 MG RECTAL SUPPOSITORY RC SCH (17:51)
[2020-12-13] MEDS: Doxycycline 100 MG CAPSULE PO SCH (21:28)
[2020-12-14 05:05] LABS: Basophils # 0.1 K/mcL (0.0-0.2); Basophils % 0.7 %; Eosinophils # 0.4 K/mcL (0.0-0.6); Eosinophils % 5.6 %; Hematocrit 40.3 % (37.5-50.1); Hemoglobin 13.2 g/dL (12.9-16.9); Immature Granulocytes % 0.8 % (0-4); Lymphocytes % 27.2 %; Mean Corpuscular HGB Conc 32.8 g/dL (31.6-35.5); Mean Corpuscular Hemoglobin 28.8 pg (28.0-33.3); Monocytes # 1.1 K/mcL (0.0-1.3); Monocytes % 14.2 %; Neutrophils # 3.8 K/mcL (1.6-8.9); Platelet Count 243 K/mcL (140-400); Red Blood Count 4.58 M/mcL (4.19-5.50); Red Cell Distribution Width 13.7 % (11.5-14.5); Segmented Neutrophils % 51.5 %; White Blood Count 7.4 K/mcL (4.3-11.1)
[2020-12-14 05:23] LABS: BUN/Creatinine Ratio 20 (6-26); Blood Urea Nitrogen 18 mg/dL (6-20); Calcium 9.5 mg/dL (8.6-10.3); Carbon Dioxide 29 mEq/L (23-29); Chloride 102 mEq/L (98-107); Glucose 222 mg/dL (70-105); Osmolality,Calculated 293 (280-300); Potassium 4.2 mEq/L (3.5-5.1); Sodium 137 mEq/L (136-145); eGFR For African Americans > 60 (> 60); eGFR For Non-African Americans > 60 (> 60)
[2020-12-14] MEDS: *HR* Enoxaparin 40 MG/0.4 ML SYRINGE SQ SCH (09:13)
[2020-12-14] MEDS: Insulin LISPRO 300 UNITS/3 ML VIAL SUBQ SCH ×4 (09:14→21:29)
[2020-12-14] MEDS: Aspirin Enteric Coated 81 MG Tablet PO SCH (09:15)
[2020-12-14] MEDS: lisinopriL 20 MG TABLET PO SCH (09:15)
[2020-12-14] MEDS: Magnesium Oxide 400 MG TABLET PO SCH (09:15)
[2020-12-14] MEDS: *HR* Metformin 500 MG TABLET PO SCH ×2 (09:15→21:27)
[2020-12-14] MEDS: Doxycycline 100 MG CAPSULE PO SCH ×2 (09:15→21:27)
[2020-12-14] MEDS: Loratadine 10 MG TABLET PO SCH (09:15)
[2020-12-14] MEDS: Amoxicillin 500 MG CAPSULE PO SCH ×2 (09:15→16:49)
[2020-12-14] MEDS: tiZANidine 4 MG TABLET PO SCH ×3 (09:15→21:28)
[2020-12-14] MEDS: Fluticasone Propionate Nasal 50 MCG/SPRAY BOTTLE NS SCH (09:16)
[2020-12-14] MEDS: Carbamide Peroxide 150 DROP/15 ML BOTTLE LEFT EAR SCH ×2 (09:17→21:31)
[2020-12-14] MEDS: Nystatin Cream 15 GM TUBE TP SCH ×2 (09:18→21:32)
[2020-12-14] MEDS: Insulin DETEMIR 100 UNIT/ML X5UNITS SUBQ SCH ×2 (09:36→21:29)
[2020-12-14] MEDS: *HR* OxyCODONE Immed Rel 5 MG TABLET PO PRN (12:58)
[2020-12-14] MEDS: Ibuprofen 600 MG TABLET PO PRN (16:49)
[2020-12-14] MEDS: Bisacodyl 10 MG RECTAL SUPPOSITORY RC SCH (17:54)
[2020-12-15] MEDS: *HR* Enoxaparin 40 MG/0.4 ML SYRINGE SQ SCH (05:12)
[2020-12-15] MEDS: Insulin LISPRO 300 UNITS/3 ML VIAL SUBQ SCH ×4 (08:44→22:04)
[2020-12-15] MEDS: Magnesium Oxide 400 MG TABLET PO SCH (08:45)
[2020-12-15] MEDS: *HR* Metformin 500 MG TABLET PO SCH ×2 (08:45→22:01)
[2020-12-15] MEDS: Aspirin Enteric Coated 81 MG Tablet PO SCH (08:45)
[2020-12-15] MEDS: lisinopriL 20 MG TABLET PO SCH (08:45)
[2020-12-15] MEDS: Doxycycline 100 MG CAPSULE PO SCH ×2 (08:45→22:02)
[2020-12-15] MEDS: Carbamide Peroxide 150 DROP/15 ML BOTTLE LEFT EAR SCH ×2 (08:46→22:07)
[2020-12-15] MEDS: Loratadine 10 MG TABLET PO SCH (08:46)
[2020-12-15] MEDS: tiZANidine 4 MG TABLET PO SCH ×3 (08:46→22:02)
[2020-12-15] MEDS: Fluticasone Propionate Nasal 50 MCG/SPRAY BOTTLE NS SCH (08:47)
[2020-12-15] MEDS: Nystatin Cream 15 GM TUBE TP SCH ×2 (08:48→22:07)
[2020-12-15] MEDS: Insulin DETEMIR 100 UNIT/ML X5UNITS SUBQ SCH ×2 (08:52→22:04)
[2020-12-15] MEDS: Ibuprofen 600 MG TABLET PO PRN (09:09)
[2020-12-15] MEDS: *HR* OxyCODONE Immed Rel 5 MG TABLET PO PRN ×2 (12:47→22:02)
[2020-12-15] MEDS: Bisacodyl 10 MG RECTAL SUPPOSITORY RC SCH (18:42)
[2020-12-16] MEDS: *HR* Enoxaparin 40 MG/0.4 ML SYRINGE SQ SCH (05:25)
[2020-12-16] MEDS: Ibuprofen 600 MG TABLET PO PRN (05:28)
[2020-12-16] MEDS: Magnesium Oxide 400 MG TABLET PO SCH (08:31)
[2020-12-16] MEDS: Loratadine 10 MG TABLET PO SCH (08:31)
[2020-12-16] MEDS: Doxycycline 100 MG CAPSULE PO SCH ×2 (08:31→20:28)
[2020-12-16] MEDS: lisinopriL 20 MG TABLET PO SCH (08:31)
[2020-12-16] MEDS: *HR* OxyCODONE Immed Rel 5 MG TABLET PO PRN ×2 (08:32→12:47)
[2020-12-16] MEDS: *HR* Metformin 500 MG TABLET PO SCH ×2 (08:32→20:28)
[2020-12-16] MEDS: tiZANidine 4 MG TABLET PO SCH ×3 (08:32→21:01)
[2020-12-16] MEDS: Aspirin Enteric Coated 81 MG Tablet PO SCH (08:32)
[2020-12-16] MEDS: Insulin LISPRO 300 UNITS/3 ML VIAL SUBQ SCH ×4 (08:36→20:31)
[2020-12-16] MEDS: Insulin DETEMIR 100 UNIT/ML X5UNITS SUBQ SCH ×2 (08:36→20:32)
[2020-12-16] MEDS: Fluticasone Propionate Nasal 50 MCG/SPRAY BOTTLE NS SCH (08:37)
[2020-12-16] MEDS: Nystatin Cream 15 GM TUBE TP SCH ×2 (08:46→20:47)
[2020-12-16] MEDS: Bisacodyl 10 MG RECTAL SUPPOSITORY RC SCH (18:00)
[2020-12-17] MEDS: *HR* Enoxaparin 40 MG/0.4 ML SYRINGE SQ SCH (05:56)
[2020-12-17] MEDS: Aspirin Enteric Coated 81 MG Tablet PO SCH (08:50)
[2020-12-17] MEDS: Insulin LISPRO 300 UNITS/3 ML VIAL SUBQ SCH ×4 (08:50→20:00)
[2020-12-17] MEDS: Loratadine 10 MG TABLET PO SCH (08:51)
[2020-12-17] MEDS: *HR* Metformin 500 MG TABLET PO SCH ×2 (08:51→19:59)
[2020-12-17] MEDS: Ibuprofen 600 MG TABLET PO PRN ×2 (08:51→17:34)
[2020-12-17] MEDS: tiZANidine 4 MG TABLET PO SCH ×3 (08:51→19:59)
[2020-12-17] MEDS: Doxycycline 100 MG CAPSULE PO SCH ×2 (08:51→19:58)
[2020-12-17] MEDS: Magnesium Oxide 400 MG TABLET PO SCH (08:52)
[2020-12-17] MEDS: lisinopriL 20 MG TABLET PO SCH (08:52)
[2020-12-17] MEDS: Fluticasone Propionate Nasal 50 MCG/SPRAY BOTTLE NS SCH (08:52)
[2020-12-17] MEDS: Nystatin Cream 15 GM TUBE TP SCH ×2 (08:52→20:00)
[2020-12-17] MEDS: Insulin DETEMIR 100 UNIT/ML X5UNITS SUBQ SCH ×2 (09:05→19:59)
[2020-12-17] MEDS: Bisacodyl 10 MG RECTAL SUPPOSITORY RC SCH (17:35)
[2020-12-17] MEDS: *HR* OxyCODONE Immed Rel 5 MG TABLET PO PRN (19:58)
[2020-12-18] MEDS: Ibuprofen 600 MG TABLET PO PRN ×2 (03:45→16:47)
[2020-12-18 05:35] LABS: Hematocrit 38.7 % (37.5-50.1); Hemoglobin 12.6 g/dL (12.9-16.9); Mean Corpuscular HGB Conc 32.6 g/dL (31.6-35.5); Mean Corpuscular Hemoglobin 28.9 pg (28.0-33.3); Mean Corpuscular Volume 88.8 fL (83.0-100.0); Mean Platelet Volume 8.9 fL (9.4-12.4); Platelet Count 189 K/mcL (140-400); Red Blood Count 4.36 M/mcL (4.19-5.50); Red Cell Distribution Width 13.5 % (11.5-14.5); White Blood Count 6.5 K/mcL (4.3-11.1)
[2020-12-18 05:49] LABS: Alanine Aminotransferase 26 Units/L (7-52); Albumin 3.6 g/dL (3.5-5.7); Albumin/Globulin Ratio 1.2 (1.1-2.2); Alkaline Phosphatase 84 Units/L (34-104); Aspartate Amino Transferase 13 Units/L (13-39); BUN/Creatinine Ratio 19 (6-26); Bilirubin,Total 0.4 mg/dL (0.3-1.0); Blood Urea Nitrogen 16 mg/dL (6-20); Calcium 9.5 mg/dL (8.6-10.3); Carbon Dioxide 28 mEq/L (23-29); Chloride 99 mEq/L (98-107); Globulin 3.1 g/dL (2.4-3.5); Glucose 250 mg/dL (70-105); Magnesium 1.9 mg/dL (1.6-2.6); Osmolality,Calculated 288 (280-300); Sodium 134 mEq/L (136-145); Total Protein 6.7 g/dL (6.4-8.9); eGFR For African Americans > 60 (> 60); eGFR For Non-African Americans > 60 (> 60)
[2020-12-18] MEDS: *HR* Enoxaparin 40 MG/0.4 ML SYRINGE SQ SCH (05:55)
[2020-12-18] MEDS: Insulin LISPRO 300 UNITS/3 ML VIAL SUBQ SCH ×4 (08:43→23:41)
[2020-12-18] MEDS: Insulin DETEMIR 100 UNIT/ML X5UNITS SUBQ SCH (08:44)
[2020-12-18] MEDS: Aspirin Enteric Coated 81 MG Tablet PO SCH (08:45)
[2020-12-18] MEDS: lisinopriL 20 MG TABLET PO SCH (08:45)
[2020-12-18] MEDS: *HR* Metformin 500 MG TABLET PO SCH ×2 (08:45→23:40)
[2020-12-18] MEDS: Loratadine 10 MG TABLET PO SCH (08:45)
[2020-12-18] MEDS: Doxycycline 100 MG CAPSULE PO SCH ×2 (08:45→23:40)
[2020-12-18] MEDS: Magnesium Oxide 400 MG TABLET PO SCH (08:46)
[2020-12-18] MEDS: *HR* OxyCODONE Immed Rel 5 MG TABLET PO PRN ×2 (08:46→13:08)
[2020-12-18] MEDS: tiZANidine 4 MG TABLET PO SCH ×3 (08:46→23:39)
[2020-12-18] MEDS: Fluticasone Propionate Nasal 50 MCG/SPRAY BOTTLE NS SCH (08:49)
[2020-12-18] MEDS: Nystatin Cream 15 GM TUBE TP SCH (11:00)
[2020-12-18] MEDS: Baclofen 10 MG TABLET PO PRN ×2 (16:48→23:40)
[2020-12-18] MEDS: Bisacodyl 10 MG RECTAL SUPPOSITORY RC SCH (18:50)
[2020-12-19] MEDS: Insulin LISPRO 300 UNITS/3 ML VIAL SUBQ SCH ×5 (00:07→22:08)
[2020-12-19] MEDS: Insulin DETEMIR 100 UNIT/ML X5UNITS SUBQ SCH ×3 (00:08→22:08)
[2020-12-19] MEDS: Nystatin Cream 15 GM TUBE TP SCH ×3 (00:12→22:02)
[2020-12-19] MEDS: *HR* Enoxaparin 40 MG/0.4 ML SYRINGE SQ SCH (05:24)
[2020-12-19] MEDS: Ibuprofen 600 MG TABLET PO PRN ×2 (05:24→22:01)
[2020-12-19] MEDS: Aspirin Enteric Coated 81 MG Tablet PO SCH (08:56)
[2020-12-19] MEDS: tiZANidine 4 MG TABLET PO SCH ×3 (08:57→22:01)
[2020-12-19] MEDS: Magnesium Oxide 400 MG TABLET PO SCH (08:57)
[2020-12-19] MEDS: lisinopriL 20 MG TABLET PO SCH (08:57)
[2020-12-19] MEDS: Loratadine 10 MG TABLET PO SCH (08:57)
[2020-12-19] MEDS: *HR* Metformin 500 MG TABLET PO SCH ×2 (08:57→22:00)
[2020-12-19] MEDS: Baclofen 10 MG TABLET PO PRN ×3 (08:57→22:01)
[2020-12-19] MEDS: Doxycycline 100 MG CAPSULE PO SCH ×2 (08:57→22:01)
[2020-12-19] MEDS: Fluticasone Propionate Nasal 50 MCG/SPRAY BOTTLE NS SCH (08:58)
[2020-12-19] MEDS: *HR* OxyCODONE Immed Rel 5 MG TABLET PO PRN ×2 (09:06→13:22)
[2020-12-19] MEDS: Bisacodyl 10 MG RECTAL SUPPOSITORY RC SCH (22:02)
[2020-12-20] MEDS: *HR* OxyCODONE Immed Rel 5 MG TABLET PO PRN ×3 (06:55→16:46)
[2020-12-20] MEDS: *HR* Enoxaparin 40 MG/0.4 ML SYRINGE SQ SCH (06:56)
[2020-12-20] MEDS: *HR* Metformin 500 MG TABLET PO SCH ×2 (08:05→21:01)
[2020-12-20] MEDS: Aspirin Enteric Coated 81 MG Tablet PO SCH (08:05)
[2020-12-20] MEDS: lisinopriL 20 MG TABLET PO SCH (08:05)
[2020-12-20] MEDS: Insulin LISPRO 300 UNITS/3 ML VIAL SUBQ SCH ×4 (08:06→21:07)
[2020-12-20] MEDS: Doxycycline 100 MG CAPSULE PO SCH ×2 (08:06→21:01)
[2020-12-20] MEDS: Loratadine 10 MG TABLET PO SCH (08:06)
[2020-12-20] MEDS: tiZANidine 4 MG TABLET PO SCH ×3 (08:06→21:01)
[2020-12-20] MEDS: Magnesium Oxide 400 MG TABLET PO SCH (08:06)
[2020-12-20] MEDS: Baclofen 10 MG TABLET PO PRN ×3 (08:18→21:01)
[2020-12-20] MEDS: Fluticasone Propionate Nasal 50 MCG/SPRAY BOTTLE NS SCH (09:43)
[2020-12-20] MEDS: Insulin DETEMIR 100 UNIT/ML X5UNITS SUBQ SCH ×2 (09:43→21:02)
[2020-12-20] MEDS: Nystatin Cream 15 GM TUBE TP SCH ×2 (09:44→21:09)
[2020-12-20] MEDS: Bisacodyl 10 MG RECTAL SUPPOSITORY RC SCH (18:06)
[2020-12-21] MEDS: Ibuprofen 600 MG TABLET PO PRN ×3 (00:08→21:54)
[2020-12-21] MEDS: *HR* Enoxaparin 40 MG/0.4 ML SYRINGE SQ SCH (04:59)
[2020-12-21] MEDS: Insulin LISPRO 300 UNITS/3 ML VIAL SUBQ SCH ×4 (09:02→21:37)
[2020-12-21] MEDS: lisinopriL 20 MG TABLET PO SCH (09:03)
[2020-12-21] MEDS: Baclofen 10 MG TABLET PO PRN ×3 (09:03→21:37)
[2020-12-21] MEDS: Loratadine 10 MG TABLET PO SCH (09:03)
[2020-12-21] MEDS: Magnesium Oxide 400 MG TABLET PO SCH (09:03)
[2020-12-21] MEDS: tiZANidine 4 MG TABLET PO SCH ×3 (09:03→21:37)
[2020-12-21] MEDS: Aspirin Enteric Coated 81 MG Tablet PO SCH (09:04)
[2020-12-21] MEDS: Doxycycline 100 MG CAPSULE PO SCH ×2 (09:04→21:37)
[2020-12-21] MEDS: *HR* Metformin 500 MG TABLET PO SCH ×2 (09:04→21:37)
[2020-12-21] MEDS: Fluticasone Propionate Nasal 50 MCG/SPRAY BOTTLE NS SCH (09:05)
[2020-12-21] MEDS: Nystatin Cream 15 GM TUBE TP SCH ×2 (09:05→21:39)
[2020-12-21] MEDS: *HR* OxyCODONE Immed Rel 5 MG TABLET PO PRN (09:07)
[2020-12-21] MEDS: Insulin DETEMIR 100 UNIT/ML X5UNITS SUBQ SCH ×2 (09:08→21:53)
[2020-12-21] MEDS: Bisacodyl 10 MG RECTAL SUPPOSITORY RC SCH (21:54)
[2020-12-22] MEDS: *HR* OxyCODONE Immed Rel 5 MG TABLET PO PRN ×3 (01:31→21:15)
[2020-12-22] MEDS: *HR* Enoxaparin 40 MG/0.4 ML SYRINGE SQ SCH (05:26)
[2020-12-22] MEDS: Magnesium Oxide 400 MG TABLET PO SCH (08:50)
[2020-12-22] MEDS: Loratadine 10 MG TABLET PO SCH (08:50)
[2020-12-22] MEDS: Baclofen 10 MG TABLET PO PRN ×3 (08:50→21:15)
[2020-12-22] MEDS: *HR* Metformin 500 MG TABLET PO SCH ×2 (08:50→21:14)
[2020-12-22] MEDS: Aspirin Enteric Coated 81 MG Tablet PO SCH (08:50)
[2020-12-22] MEDS: Doxycycline 100 MG CAPSULE PO SCH ×2 (08:51→21:14)
[2020-12-22] MEDS: lisinopriL 20 MG TABLET PO SCH (08:51)
[2020-12-22] MEDS: Nystatin Cream 15 GM TUBE TP SCH ×2 (08:51→21:19)
[2020-12-22] MEDS: tiZANidine 4 MG TABLET PO SCH ×3 (08:51→21:15)
[2020-12-22] MEDS: Fluticasone Propionate Nasal 50 MCG/SPRAY BOTTLE NS SCH (08:52)
[2020-12-22] MEDS: Insulin DETEMIR 100 UNIT/ML X5UNITS SUBQ SCH ×2 (08:52→21:10)
[2020-12-22] MEDS: Insulin LISPRO 300 UNITS/3 ML VIAL SUBQ SCH ×4 (08:53→21:10)
[2020-12-22] MEDS: Ibuprofen 600 MG TABLET PO PRN (10:43)
[2020-12-22] MEDS: Bisacodyl 10 MG RECTAL SUPPOSITORY RC SCH (17:24)
[2020-12-23] MEDS: Ibuprofen 600 MG TABLET PO PRN ×2 (06:07→14:35)
[2020-12-23] MEDS: *HR* Enoxaparin 40 MG/0.4 ML SYRINGE SQ SCH (06:07)
[2020-12-23] MEDS: Magnesium Oxide 400 MG TABLET PO SCH (08:44)
[2020-12-23] MEDS: *HR* Metformin 500 MG TABLET PO SCH ×2 (08:44→21:04)
[2020-12-23] MEDS: lisinopriL 20 MG TABLET PO SCH (08:45)
[2020-12-23] MEDS: Loratadine 10 MG TABLET PO SCH (08:45)
[2020-12-23] MEDS: Doxycycline 100 MG CAPSULE PO SCH ×2 (08:45→21:04)
[2020-12-23] MEDS: tiZANidine 4 MG TABLET PO SCH ×3 (08:45→21:04)
[2020-12-23] MEDS: Aspirin Enteric Coated 81 MG Tablet PO SCH (08:46)
[2020-12-23] MEDS: Insulin LISPRO 300 UNITS/3 ML VIAL SUBQ SCH ×4 (08:46→21:05)
[2020-12-23] MEDS: Baclofen 10 MG TABLET PO PRN ×3 (08:46→21:04)
[2020-12-23] MEDS: Fluticasone Propionate Nasal 50 MCG/SPRAY BOTTLE NS SCH (12:11)
[2020-12-23] MEDS: Insulin DETEMIR 100 UNIT/ML X5UNITS SUBQ SCH ×2 (12:11→21:05)
[2020-12-23] MEDS: Nystatin Cream 15 GM TUBE TP SCH ×2 (12:11→21:05)
[2020-12-23] MEDS: *HR* OxyCODONE Immed Rel 5 MG TABLET PO PRN (17:47)
[2020-12-23] MEDS: Bisacodyl 10 MG RECTAL SUPPOSITORY RC SCH (21:03)
[2020-12-24] MEDS: *HR* OxyCODONE Immed Rel 5 MG TABLET PO PRN ×2 (00:13→20:02)
[2020-12-24] MEDS: *HR* Enoxaparin 40 MG/0.4 ML SYRINGE SQ SCH (05:32)
[2020-12-24] MEDS: Ibuprofen 600 MG TABLET PO PRN ×2 (06:21→15:33)
[2020-12-24] MEDS: Insulin LISPRO 300 UNITS/3 ML VIAL SUBQ SCH ×4 (09:00→20:42)
[2020-12-24] MEDS: Insulin DETEMIR 100 UNIT/ML X5UNITS SUBQ SCH ×2 (09:00→20:49)
[2020-12-24] MEDS: Baclofen 10 MG TABLET PO PRN ×2 (09:02→15:31)
[2020-12-24] MEDS: Magnesium Oxide 400 MG TABLET PO SCH (09:02)
[2020-12-24] MEDS: *HR* Metformin 500 MG TABLET PO SCH ×2 (09:02→20:40)
[2020-12-24] MEDS: tiZANidine 4 MG TABLET PO SCH ×3 (09:02→20:41)
[2020-12-24] MEDS: Doxycycline 100 MG CAPSULE PO SCH ×2 (09:02→20:41)
[2020-12-24] MEDS: Loratadine 10 MG TABLET PO SCH (09:03)
[2020-12-24] MEDS: Aspirin Enteric Coated 81 MG Tablet PO SCH (09:03)
[2020-12-24] MEDS: lisinopriL 20 MG TABLET PO SCH (09:03)
[2020-12-24] MEDS: Fluticasone Propionate Nasal 50 MCG/SPRAY BOTTLE NS SCH (09:03)
[2020-12-24] MEDS: Nystatin Cream 15 GM TUBE TP SCH ×2 (09:04→20:50)
[2020-12-24] MEDS: Bisacodyl 10 MG RECTAL SUPPOSITORY RC SCH (18:10)
[2020-12-25] MEDS: Ibuprofen 600 MG TABLET PO PRN ×2 (02:40→21:44)
[2020-12-25] MEDS: *HR* OxyCODONE Immed Rel 5 MG TABLET PO PRN ×3 (05:11→23:50)
[2020-12-25] MEDS: *HR* Enoxaparin 40 MG/0.4 ML SYRINGE SQ SCH (05:12)
[2020-12-25] MEDS: Doxycycline 100 MG CAPSULE PO SCH ×2 (08:24→21:43)
[2020-12-25] MEDS: lisinopriL 20 MG TABLET PO SCH (08:24)
[2020-12-25] MEDS: Magnesium Oxide 400 MG TABLET PO SCH (08:25)
[2020-12-25] MEDS: Loratadine 10 MG TABLET PO SCH (08:25)
[2020-12-25] MEDS: Aspirin Enteric Coated 81 MG Tablet PO SCH (08:25)
[2020-12-25] MEDS: tiZANidine 4 MG TABLET PO SCH ×3 (08:25→21:44)
[2020-12-25] MEDS: *HR* Metformin 500 MG TABLET PO SCH ×2 (08:25→21:44)
[2020-12-25] MEDS: Baclofen 10 MG TABLET PO PRN ×3 (08:25→21:44)
[2020-12-25] MEDS: Insulin LISPRO 300 UNITS/3 ML VIAL SUBQ SCH ×4 (08:26→21:50)
[2020-12-25] MEDS: Fluticasone Propionate Nasal 50 MCG/SPRAY BOTTLE NS SCH (08:26)
[2020-12-25] MEDS: Nystatin Cream 15 GM TUBE TP SCH ×2 (08:27→21:43)
[2020-12-25] MEDS: Insulin DETEMIR 100 UNIT/ML X5UNITS SUBQ SCH ×2 (08:27→21:49)
[2020-12-25] MEDS: Bisacodyl 10 MG RECTAL SUPPOSITORY RC SCH (17:57)
[2020-12-26] MEDS: *HR* Enoxaparin 40 MG/0.4 ML SYRINGE SQ SCH (06:03)
[2020-12-26] MEDS: *HR* Metformin 500 MG TABLET PO SCH ×2 (08:50→21:00)
[2020-12-26] MEDS: tiZANidine 4 MG TABLET PO SCH ×3 (08:50→20:59)
[2020-12-26] MEDS: Doxycycline 100 MG CAPSULE PO SCH ×2 (08:51→20:59)
[2020-12-26] MEDS: *HR* OxyCODONE Immed Rel 5 MG TABLET PO PRN ×2 (08:51→12:48)
[2020-12-26] MEDS: lisinopriL 20 MG TABLET PO SCH (08:51)
[2020-12-26] MEDS: Magnesium Oxide 400 MG TABLET PO SCH (08:51)
[2020-12-26] MEDS: Aspirin Enteric Coated 81 MG Tablet PO SCH (08:51)
[2020-12-26] MEDS: Baclofen 10 MG TABLET PO PRN ×2 (08:51→17:48)
[2020-12-26] MEDS: Loratadine 10 MG TABLET PO SCH (08:51)
[2020-12-26] MEDS: Insulin LISPRO 300 UNITS/3 ML VIAL SUBQ SCH ×4 (08:51→21:01)
[2020-12-26] MEDS: Insulin DETEMIR 100 UNIT/ML X5UNITS SUBQ SCH ×2 (08:52→21:00)
[2020-12-26] MEDS: Nystatin Cream 15 GM TUBE TP SCH ×2 (08:52→22:42)
[2020-12-26] MEDS: Fluticasone Propionate Nasal 50 MCG/SPRAY BOTTLE NS SCH (08:52)
[2020-12-26] MEDS: Bisacodyl 10 MG RECTAL SUPPOSITORY RC SCH (17:48)
[2020-12-27] MEDS: *HR* OxyCODONE Immed Rel 5 MG TABLET PO PRN ×3 (01:52→22:59)
[2020-12-27 04:59] LABS: Hemoglobin 13.2 g/dL (12.9-16.9); Mean Corpuscular Hemoglobin 28.9 pg (28.0-33.3); Mean Corpuscular Volume 87.7 fL (83.0-100.0); Mean Platelet Volume 9.3 fL (9.4-12.4); Platelet Count 220 K/mcL (140-400); Red Blood Count 4.56 M/mcL (4.19-5.50); Red Cell Distribution Width 13.5 % (11.5-14.5); White Blood Count 9.9 K/mcL (4.3-11.1)
[2020-12-27 05:13] LABS: Alanine Aminotransferase 25 Units/L (7-52); Albumin 3.6 g/dL (3.5-5.7); Albumin/Globulin Ratio 1.3 (1.1-2.2); Alkaline Phosphatase 82 Units/L (34-104); Aspartate Amino Transferase 13 Units/L (13-39); BUN/Creatinine Ratio 19 (6-26); Bilirubin,Total 0.4 mg/dL (0.3-1.0); Blood Urea Nitrogen 16 mg/dL (6-20); Calcium 9.4 mg/dL (8.6-10.3); Carbon Dioxide 25 mEq/L (23-29); Chloride 101 mEq/L (98-107); Globulin 2.8 g/dL (2.4-3.5); Glucose 230 mg/dL (70-105); Magnesium 1.7 mg/dL (1.6-2.6); Osmolality,Calculated 284 (280-300); Potassium 4.2 mEq/L (3.5-5.1); Sodium 133 mEq/L (136-145); Total Protein 6.4 g/dL (6.4-8.9); eGFR For African Americans > 60 (> 60); eGFR For Non-African Americans > 60 (> 60)
[2020-12-27] MEDS: *HR* Enoxaparin 40 MG/0.4 ML SYRINGE SQ SCH (05:46)
[2020-12-27] MEDS: Ibuprofen 600 MG TABLET PO PRN (07:59)
[2020-12-27] MEDS: Magnesium Oxide 400 MG TABLET PO SCH (07:59)
[2020-12-27] MEDS: lisinopriL 20 MG TABLET PO SCH (07:59)
[2020-12-27] MEDS: Doxycycline 100 MG CAPSULE PO SCH (07:59)
[2020-12-27] MEDS: Loratadine 10 MG TABLET PO SCH (08:00)
[2020-12-27] MEDS: tiZANidine 4 MG TABLET PO SCH ×3 (08:00→23:02)
[2020-12-27] MEDS: Aspirin Enteric Coated 81 MG Tablet PO SCH (08:00)
[2020-12-27] MEDS: Insulin LISPRO 300 UNITS/3 ML VIAL SUBQ SCH ×4 (08:00→23:06)
[2020-12-27] MEDS: Baclofen 10 MG TABLET PO PRN ×3 (08:00→23:11)
[2020-12-27] MEDS: *HR* Metformin 500 MG TABLET PO SCH ×2 (08:00→23:02)
[2020-12-27] MEDS: Fluticasone Propionate Nasal 50 MCG/SPRAY BOTTLE NS SCH (08:01)
[2020-12-27] MEDS: Nystatin Cream 15 GM TUBE TP SCH ×2 (08:01→23:06)
[2020-12-27] MEDS: Insulin DETEMIR 100 UNIT/ML X5UNITS SUBQ SCH ×2 (08:01→23:06)
[2020-12-27] MEDS: Bisacodyl 10 MG RECTAL SUPPOSITORY RC SCH (17:59)
[2020-12-28] MEDS: *HR* Enoxaparin 40 MG/0.4 ML SYRINGE SQ SCH (06:27)
[2020-12-28] MEDS: Ibuprofen 600 MG TABLET PO PRN ×2 (06:27→18:03)
[2020-12-28] MEDS: Aspirin Enteric Coated 81 MG Tablet PO SCH (08:50)
[2020-12-28] MEDS: tiZANidine 4 MG TABLET PO SCH ×3 (08:50→23:15)
[2020-12-28] MEDS: Baclofen 10 MG TABLET PO PRN ×2 (08:50→23:15)
[2020-12-28] MEDS: lisinopriL 20 MG TABLET PO SCH (08:50)
[2020-12-28] MEDS: *HR* Metformin 500 MG TABLET PO SCH ×2 (08:50→23:20)
[2020-12-28] MEDS: Loratadine 10 MG TABLET PO SCH (08:50)
[2020-12-28] MEDS: Magnesium Oxide 400 MG TABLET PO SCH (08:51)
[2020-12-28] MEDS: Insulin LISPRO 300 UNITS/3 ML VIAL SUBQ SCH ×4 (08:51→23:22)
[2020-12-28] MEDS: Insulin DETEMIR 100 UNIT/ML X5UNITS SUBQ SCH ×2 (08:51→23:24)
[2020-12-28] MEDS: Fluticasone Propionate Nasal 50 MCG/SPRAY BOTTLE NS SCH (08:52)
[2020-12-28] MEDS: *HR* OxyCODONE Immed Rel 5 MG TABLET PO PRN ×2 (12:35→23:15)
[2020-12-28] MEDS: Doxycycline 100 MG CAPSULE PO SCH ×2 (12:35→23:15)
[2020-12-28] MEDS: Nystatin Cream 15 GM TUBE TP SCH ×2 (12:36→23:27)
[2020-12-28] MEDS: Bisacodyl 10 MG RECTAL SUPPOSITORY RC SCH (18:04)
[2020-12-29] MEDS: Ibuprofen 600 MG TABLET PO PRN ×2 (06:01→16:48)
[2020-12-29] MEDS: *HR* Enoxaparin 40 MG/0.4 ML SYRINGE SQ SCH (06:01)
[2020-12-29] MEDS: Magnesium Oxide 400 MG TABLET PO SCH (08:39)
[2020-12-29] MEDS: Aspirin Enteric Coated 81 MG Tablet PO SCH (08:39)
[2020-12-29] MEDS: tiZANidine 4 MG TABLET PO SCH ×3 (08:39→23:13)
[2020-12-29] MEDS: Baclofen 10 MG TABLET PO PRN ×3 (08:39→23:15)
[2020-12-29] MEDS: lisinopriL 20 MG TABLET PO SCH (08:39)
[2020-12-29] MEDS: *HR* Metformin 500 MG TABLET PO SCH ×2 (08:40→23:14)
[2020-12-29] MEDS: Insulin DETEMIR 100 UNIT/ML X5UNITS SUBQ SCH ×2 (08:40→23:17)
[2020-12-29] MEDS: Doxycycline 100 MG CAPSULE PO SCH ×2 (08:40→23:16)
[2020-12-29] MEDS: Loratadine 10 MG TABLET PO SCH (08:40)
[2020-12-29] MEDS: Fluticasone Propionate Nasal 50 MCG/SPRAY BOTTLE NS SCH (08:41)
[2020-12-29] MEDS: Insulin LISPRO 300 UNITS/3 ML VIAL SUBQ SCH ×4 (08:42→23:07)
[2020-12-29] MEDS: Nystatin Cream 15 GM TUBE TP SCH ×2 (08:43→23:20)
[2020-12-29] MEDS: *HR* OxyCODONE Immed Rel 5 MG TABLET PO PRN ×2 (12:37→23:15)
[2020-12-29] MEDS: Bisacodyl 10 MG RECTAL SUPPOSITORY RC SCH (19:21)
[2020-12-30] MEDS: Ibuprofen 600 MG TABLET PO PRN (06:51)
[2020-12-30] MEDS: *HR* Enoxaparin 40 MG/0.4 ML SYRINGE SQ SCH (06:52)
[2020-12-30] MEDS: Insulin LISPRO 300 UNITS/3 ML VIAL SUBQ SCH ×4 (08:10→20:21)
[2020-12-30] MEDS: Aspirin Enteric Coated 81 MG Tablet PO SCH (08:10)
[2020-12-30] MEDS: Doxycycline 100 MG CAPSULE PO SCH ×2 (08:10→20:19)
[2020-12-30] MEDS: Loratadine 10 MG TABLET PO SCH (08:10)
[2020-12-30] MEDS: tiZANidine 4 MG TABLET PO SCH ×3 (08:10→20:19)
[2020-12-30] MEDS: *HR* Metformin 500 MG TABLET PO SCH ×2 (08:10→20:19)
[2020-12-30] MEDS: Magnesium Oxide 400 MG TABLET PO SCH (08:10)
[2020-12-30] MEDS: Baclofen 10 MG TABLET PO PRN ×2 (08:10→17:11)
[2020-12-30] MEDS: lisinopriL 20 MG TABLET PO SCH (08:10)
[2020-12-30] MEDS: Fluticasone Propionate Nasal 50 MCG/SPRAY BOTTLE NS SCH (08:11)
[2020-12-30] MEDS: Nystatin Cream 15 GM TUBE TP SCH ×2 (08:11→20:20)
[2020-12-30] MEDS: Insulin DETEMIR 100 UNIT/ML X5UNITS SUBQ SCH ×2 (08:11→20:22)
[2020-12-30] MEDS: Bisacodyl 10 MG RECTAL SUPPOSITORY RC SCH (18:48)
[2020-12-30] MEDS: *HR* OxyCODONE Immed Rel 5 MG TABLET PO PRN (22:54)
[2020-12-31] MEDS: *HR* OxyCODONE Immed Rel 5 MG TABLET PO PRN (04:00)
[2020-12-31] MEDS: *HR* Enoxaparin 40 MG/0.4 ML SYRINGE SQ SCH (05:52)
[2020-12-31] MEDS: Magnesium Oxide 400 MG TABLET PO SCH (09:06)
[2020-12-31] MEDS: Baclofen 10 MG TABLET PO PRN ×2 (09:06→15:21)
[2020-12-31] MEDS: Aspirin Enteric Coated 81 MG Tablet PO SCH (09:06)
[2020-12-31] MEDS: tiZANidine 4 MG TABLET PO SCH ×3 (09:06→21:10)
[2020-12-31] MEDS: Loratadine 10 MG TABLET PO SCH (09:07)
[2020-12-31] MEDS: lisinopriL 20 MG TABLET PO SCH (09:07)
[2020-12-31] MEDS: *HR* Metformin 500 MG TABLET PO SCH ×2 (09:07→21:10)
[2020-12-31] MEDS: Insulin LISPRO 300 UNITS/3 ML VIAL SUBQ SCH ×4 (09:07→21:10)
[2020-12-31] MEDS: Nystatin Cream 15 GM TUBE TP SCH ×2 (09:08→21:10)
[2020-12-31] MEDS: Fluticasone Propionate Nasal 50 MCG/SPRAY BOTTLE NS SCH (09:08)
[2020-12-31] MEDS: Insulin DETEMIR 100 UNIT/ML X5UNITS SUBQ SCH ×2 (09:08→21:11)
[2020-12-31] MEDS: Ibuprofen 600 MG TABLET PO PRN (09:10)
[2020-12-31] MEDS: Doxycycline 100 MG CAPSULE PO SCH ×2 (09:10→21:56)
[2020-12-31] MEDS: Bisacodyl 10 MG RECTAL SUPPOSITORY RC SCH (17:38)
[2021-01-01] MEDS: *HR* OxyCODONE Immed Rel 5 MG TABLET PO PRN ×2 (00:16→15:47)
[2021-01-01] MEDS: *HR* Enoxaparin 40 MG/0.4 ML SYRINGE SQ SCH (06:17)
[2021-01-01] MEDS: Aspirin Enteric Coated 81 MG Tablet PO SCH (07:51)
[2021-01-01] MEDS: Insulin LISPRO 300 UNITS/3 ML VIAL SUBQ SCH ×4 (07:51→20:51)
[2021-01-01] MEDS: lisinopriL 20 MG TABLET PO SCH (07:52)
[2021-01-01] MEDS: *HR* Metformin 500 MG TABLET PO SCH ×2 (07:52→17:31)
[2021-01-01] MEDS: Loratadine 10 MG TABLET PO SCH (07:52)
[2021-01-01] MEDS: Nystatin Cream 15 GM TUBE TP SCH ×2 (07:52→20:51)
[2021-01-01] MEDS: Magnesium Oxide 400 MG TABLET PO SCH (07:52)
[2021-01-01] MEDS: tiZANidine 4 MG TABLET PO SCH ×3 (07:52→20:49)
[2021-01-01] MEDS: Insulin DETEMIR 100 UNIT/ML X5UNITS SUBQ SCH ×2 (10:02→20:52)
[2021-01-01] MEDS: Ibuprofen 600 MG TABLET PO PRN (10:02)
[2021-01-01] MEDS: Doxycycline 100 MG CAPSULE PO SCH ×2 (10:02→20:49)
[2021-01-01] MEDS: Fluticasone Propionate Nasal 50 MCG/SPRAY BOTTLE NS SCH (10:02)
[2021-01-01] MEDS: Baclofen 10 MG TABLET PO PRN ×2 (15:47→20:50)
[2021-01-01] MEDS: Bisacodyl 10 MG RECTAL SUPPOSITORY RC SCH (17:33)
[2021-01-02] MEDS: *HR* Enoxaparin 40 MG/0.4 ML SYRINGE SQ SCH (06:09)
[2021-01-02] MEDS: *HR* Metformin 500 MG TABLET PO SCH ×2 (08:35→17:30)
[2021-01-02] MEDS: Aspirin Enteric Coated 81 MG Tablet PO SCH (08:35)
[2021-01-02] MEDS: Magnesium Oxide 400 MG TABLET PO SCH (08:35)
[2021-01-02] MEDS: Baclofen 10 MG TABLET PO PRN ×3 (08:35→23:14)
[2021-01-02] MEDS: lisinopriL 20 MG TABLET PO SCH (08:35)
[2021-01-02] MEDS: Doxycycline 100 MG CAPSULE PO SCH ×2 (08:35→23:11)
[2021-01-02] MEDS: tiZANidine 4 MG TABLET PO SCH ×3 (08:35→23:11)
[2021-01-02] MEDS: Insulin LISPRO 300 UNITS/3 ML VIAL SUBQ SCH ×4 (08:36→23:18)
[2021-01-02] MEDS: Nystatin Cream 15 GM TUBE TP SCH ×2 (08:36→23:18)
[2021-01-02] MEDS: Fluticasone Propionate Nasal 50 MCG/SPRAY BOTTLE NS SCH (08:36)
[2021-01-02] MEDS: Loratadine 10 MG TABLET PO SCH (08:36)
[2021-01-02] MEDS: Insulin DETEMIR 100 UNIT/ML X5UNITS SUBQ SCH ×2 (08:37→23:18)
[2021-01-02] MEDS: *HR* OxyCODONE Immed Rel 5 MG TABLET PO PRN ×3 (08:43→23:14)
[2021-01-02] MEDS: Ibuprofen 600 MG TABLET PO PRN (12:30)
[2021-01-02] MEDS: Bisacodyl 10 MG RECTAL SUPPOSITORY RC SCH (18:21)
[2021-01-03] MEDS: *HR* Enoxaparin 40 MG/0.4 ML SYRINGE SQ SCH (04:31)
[2021-01-03] MEDS: Ibuprofen 600 MG TABLET PO PRN ×2 (04:31→18:00)
[2021-01-03 04:46] LABS: Basophils # 0.1 K/mcL (0.0-0.2); Basophils % 0.6 %; Eosinophils # 0.4 K/mcL (0.0-0.6); Eosinophils % 5.1 %; Hematocrit 40.7 % (37.5-50.1); Hemoglobin 13.5 g/dL (12.9-16.9); Immature Granulocytes % 0.6 % (0-4); Lymphocytes # 2.7 K/mcL (0.6-4.6); Lymphocytes % 31.3 %; Mean Corpuscular HGB Conc 33.2 g/dL (31.6-35.5); Mean Corpuscular Volume 87.5 fL (83.0-100.0); Mean Platelet Volume 9.5 fL (9.4-12.4); Monocytes % 11.6 %; Neutrophils # 4.4 K/mcL (1.6-8.9); Platelet Count 205 K/mcL (140-400); Red Blood Count 4.65 M/mcL (4.19-5.50); Red Cell Distribution Width 13.3 % (11.5-14.5); Segmented Neutrophils % 50.8 %; White Blood Count 8.7 K/mcL (4.3-11.1)
[2021-01-03 04:59] LABS: BUN/Creatinine Ratio 18 (6-26); Blood Urea Nitrogen 16 mg/dL (6-20); Calcium 9.6 mg/dL (8.6-10.3); Carbon Dioxide 29 mEq/L (23-29); Chloride 102 mEq/L (98-107); Glucose 235 mg/dL (70-105); Osmolality,Calculated 293 (280-300); Potassium 4.4 mEq/L (3.5-5.1); Sodium 137 mEq/L (136-145); eGFR For African Americans > 60 (> 60); eGFR For Non-African Americans > 60 (> 60)
[2021-01-03] MEDS: Loratadine 10 MG TABLET PO SCH (09:14)
[2021-01-03] MEDS: *HR* Metformin 500 MG TABLET PO SCH ×2 (09:14→18:01)
[2021-01-03] MEDS: Insulin DETEMIR 100 UNIT/ML X5UNITS SUBQ SCH ×2 (09:15→23:29)
[2021-01-03] MEDS: Aspirin Enteric Coated 81 MG Tablet PO SCH (09:15)
[2021-01-03] MEDS: Magnesium Oxide 400 MG TABLET PO SCH (09:15)
[2021-01-03] MEDS: Doxycycline 100 MG CAPSULE PO SCH ×2 (09:15→23:43)
[2021-01-03] MEDS: lisinopriL 20 MG TABLET PO SCH (09:15)
[2021-01-03] MEDS: Baclofen 10 MG TABLET PO PRN ×2 (09:15→18:01)
[2021-01-03] MEDS: tiZANidine 4 MG TABLET PO SCH ×3 (09:15→23:43)
[2021-01-03] MEDS: Insulin LISPRO 300 UNITS/3 ML VIAL SUBQ SCH ×4 (09:15→23:30)
[2021-01-03] MEDS: Fluticasone Propionate Nasal 50 MCG/SPRAY BOTTLE NS SCH (09:16)
[2021-01-03] MEDS: Nystatin Cream 15 GM TUBE TP SCH ×2 (09:16→23:46)
[2021-01-03 11:35] LABS: C-Reactive Protein 7 mg/L (Less than 10)
[2021-01-03] MEDS: *HR* OxyCODONE Immed Rel 5 MG TABLET PO PRN ×2 (12:30→23:42)
[2021-01-03] MEDS: Bisacodyl 10 MG RECTAL SUPPOSITORY RC SCH (18:00)
[2021-01-04] MEDS: Baclofen 10 MG TABLET PO PRN ×2 (06:46→16:59)
[2021-01-04] MEDS: *HR* Enoxaparin 40 MG/0.4 ML SYRINGE SQ SCH (06:46)
[2021-01-04] MEDS: Ibuprofen 600 MG TABLET PO PRN ×2 (06:46→21:15)
[2021-01-04] MEDS: Aspirin Enteric Coated 81 MG Tablet PO SCH (08:46)
[2021-01-04] MEDS: lisinopriL 20 MG TABLET PO SCH (08:46)
[2021-01-04] MEDS: Doxycycline 100 MG CAPSULE PO SCH ×2 (08:47→21:15)
[2021-01-04] MEDS: Loratadine 10 MG TABLET PO SCH (08:47)
[2021-01-04] MEDS: tiZANidine 4 MG TABLET PO SCH ×3 (08:47→21:16)
[2021-01-04] MEDS: *HR* Metformin 500 MG TABLET PO SCH ×2 (08:47→16:59)
[2021-01-04] MEDS: Magnesium Oxide 400 MG TABLET PO SCH (08:47)
[2021-01-04] MEDS: Insulin LISPRO 300 UNITS/3 ML VIAL SUBQ SCH ×4 (08:52→21:14)
[2021-01-04] MEDS: Nystatin Cream 15 GM TUBE TP SCH ×2 (08:56→21:16)
[2021-01-04] MEDS: Fluticasone Propionate Nasal 50 MCG/SPRAY BOTTLE NS SCH (08:56)
[2021-01-04] MEDS: Insulin DETEMIR 100 UNIT/ML X5UNITS SUBQ SCH ×2 (08:56→21:14)
[2021-01-04] MEDS: *HR* OxyCODONE Immed Rel 5 MG TABLET PO PRN (12:44)
[2021-01-04] MEDS: Bisacodyl 10 MG RECTAL SUPPOSITORY RC SCH (21:16)
[2021-01-05] MEDS: *HR* OxyCODONE Immed Rel 5 MG TABLET PO PRN ×2 (00:22→08:11)
[2021-01-05] MEDS: *HR* Enoxaparin 40 MG/0.4 ML SYRINGE SQ SCH (06:43)
[2021-01-05] MEDS: lisinopriL 20 MG TABLET PO SCH (07:51)
[2021-01-05] MEDS: Aspirin Enteric Coated 81 MG Tablet PO SCH (07:51)
[2021-01-05] MEDS: *HR* Metformin 500 MG TABLET PO SCH (07:51)
[2021-01-05] MEDS: Doxycycline 100 MG CAPSULE PO SCH (07:51)
[2021-01-05] MEDS: Magnesium Oxide 400 MG TABLET PO SCH (07:51)
[2021-01-05] MEDS: Baclofen 10 MG TABLET PO PRN (07:51)
[2021-01-05] MEDS: tiZANidine 4 MG TABLET PO SCH (07:51)
[2021-01-05] MEDS: Loratadine 10 MG TABLET PO SCH (07:51)
[2021-01-05] MEDS: Fluticasone Propionate Nasal 50 MCG/SPRAY BOTTLE NS SCH (07:52)
[2021-01-05] MEDS: Insulin DETEMIR 100 UNIT/ML X5UNITS SUBQ SCH (07:52)
[2021-01-05] MEDS: Insulin LISPRO 300 UNITS/3 ML VIAL SUBQ SCH (07:53)
[2021-01-05] MEDS: Nystatin Cream 15 GM TUBE TP SCH (07:55)
[2021-01-05 09:41] VITALS: BP 165/91
== END 2021-01-05 10:55 | disposition home health service (06) | DRG 560 ==
LOC: INPGRE 11-30 14:06
PROVIDERS: ADMIT Family Medicine; ATTEND Family Medicine